=== PATIENT | male | born 1970 | race Caucasian/White ===

== ENCOUNTER 2023-12-23 21:23 | Emergency (ER) | payer SELFPAY ==
[2023-12-23 21:59] LABS: Absolute Basophils 0.1 K/uL (0-0.5); Absolute Eosinophils 0.4 K/uL (0-0.5); Absolute Monocytes 0.8 K/uL (0.1-1.3); Absolute Neutrophil 6.1 K/uL (1.8-8.0); Basophils % 1.1 % (0-1.3); Eosinophils % 4.4 % (0-4.4); Hematocrit 43.4 % (39.6-49.0); Hemoglobin 13.4 g/dL (13.6-17.9); Lymphocytes % 21.7 % (15.3-44.8); MCH 24.8 pg (27.0-35.0); MCV 79.9 fL (80-100); MPV 7.2 fL (7.6-11.3); Monocytes % 8.1 % (3.3-12.3); Neutrophils % 64.7 % (41.7-73.7); Platelets 365 thou/uL (152-406); RBC Red Blood Cell Count 5.43 M/uL (4.33-5.43)
[2023-12-23] MEDS ORDERED: ALBUTEROL 2.5 MG/3 ML NEB SOL ONE ×2 (21:59→22:01)
[2023-12-23] MEDS ORDERED: METHYLPREDNISOLONE 125 MG INJ ONE (21:59)
[2023-12-23] MEDS ORDERED: IPRATROPIUM BROM 0.5MG/2.5ML ONE (21:59)
[2023-12-23] MEDS ORDERED: FUROSEMIDE 40 MG/4 ML VIAL ONE (22:00)
[2023-12-23] MEDS ORDERED: GUAIFENESIN/DM 5 ML UCUP ONE (22:00)
[2023-12-23 22:17] LABS: SARS-CoV-2 Antigen CONTROL BLUE LINE VIS/BG OK; SARS-CoV-2 Antigen Rapid Res Negative (Negative)
[2023-12-23 22:18] LABS: Anion Gap 6.9 mEq/L (5.0-15.0); Potassium 3.9 mEq/L (3.5-5.1); Troponin High Sensitivity 22.5 pg/mL (<58.9)
[2023-12-23 22:51] LABS: PT Prothrombin Time 12.8 SECONDS (9.5-12.5); Protime INR 1.17
--- NOTE | 2023-12-23 23:05 | RAD REPORT ---
[facility] 10[facility]15 pm CLINICAL HISTORY: DYSPNEA COMPARISON: CHEST SINGLE VIEW dated 02/05/2014 TECHNIQUE: Portable AP view of the chest. FINDINGS: The lungs are clear although decreased penetration somewhat limits evaluation. No pneumot horax or effusion. The cardiomediastinal contours are unremarkable. IMPRESSION: No acute cardiopulmonary process.
[2023-12-23 23:06] LABS: ALT/SGPT 39 U/L (16-61); AST/SGOT 19 U/L (15-37); Albumin 3.1 g/dL (3.4-5.0); Albumin/Globulin Ratio 0.8 (1.1-1.8); Alkaline Phosphatase 79 U/L (45-117); Bilirubin Direct < 0.2 mg/dL (0-0.2); Bilirubin Total 0.2 mg/dL (0.2-1.0); Globulin 4.1 g/dL (2.3-3.5); Protein, Total 7.2 g/dL (6.4-8.2)
[2023-12-24] MEDS ORDERED: AZITHROMYCIN 250 MG TAB ONE (00:05)
--- NOTE | 2023-12-24 00:06 | ER ---
Nurse's Notes [facility] Name: Polo Rogers Jr Age: 53 yrs Sex: Male : 1970 Arrival Date: 12/23/2023 Time: 21:23 Bed 10 Private MD: Diagnosis: COPD/ Chronic obstructive pulmonary disease with (acute) exacerbation;Acute bronchitis, unspecified;Acute bacterial bronchitis Presentation: 12/22 21:28 Chief complaint: Patient states: shortness of breath x1 month with worsening yesterday as6 and today. Coronavirus screen: At this time, the client does not indicate any symptoms associated with coronavirus-19. Ebola Screen: No symptoms or risks identified at this time. Initial Sepsis Screen: Does the patient meet any 2 criteria? No. Patient's initial sepsis screen is negative. Does the patient have a suspected source of infection? No. Patient's initial sepsis screen is negative. Risk Assessment: Do you want to hurt yourself or someone else? Patient reports no desire to harm self or others. Onset of symptoms was December 22, 2023. 21:28 Acuity: IMMANUEL 2 as6 21:28 Method Of Arrival: Ambulatory as6 Historical: - Allergies: 21:26 TB test; as6 - PMHx: 21:26 Congestive heart failure; Chronic obstructive lung disease; Hypertensive disorder; as6 - PSHx: 21:26 hernia; as6 - Immunization history:: Adult Immunizations not up to date. - Infectious Disease History:: Denies. - Social history:: Smoking status: Patient/guardian denies using tobacco, but has a distant history of tobacco abuse. - Family history:: not pertinent. Screenin:50 [facility] ED Fall Risk Assessment (Adult) History of falling in the last 3 months, kl including since admission No falls in past 3 months (0 pts) Confusion or Disorientation No (0 pts) Intoxicated or Sedated No (0 pts) Impaired Gait No (0 pts) Mobility Assist Device Used No (0 pt) Altered Elimination No (0 pt) Score/Fall Risk Level 0 - 2 = Low Risk Oriented to surroundings, Maintained a safe environment. Abuse screen: Denies threats or abuse. Nutritional screening: No deficits noted. Tuberculosis screening: No symptoms or risk factors identified. Assessment: 21:49 General: Appears uncomfortable, Behavior is calm, cooperative. Pain: Denies pain. kl Cardiovascular: Rhythm is sinus rhythm. Respiratory: Airway is patent Trachea midline Respiratory effort is labored, Respiratory pattern is symmetrical, tachypnea the patient has moderate shortness of breath Parent/caregiver reports the patient having shortness of breath at rest on exertion cough that is non-productive, hacking. 23:36 Reassessment: Patient appears in no apparent distress at this time. Patient states kl feeling better. Patient states symptoms have improved. Vital Signs: 21:25 BP 157 / 90; Pulse 101; Resp 20 S; Temp 97.8(TE); Pulse Ox 99% on R/A; Weight 158.76 kg as6 (R); Height 5 ft. 9 in. (R); Pain 8/10; 23:36 BP 123 / 86; Pulse 89; Resp 20; Pulse Ox 96% on R/A; kl 12/23 00:27 BP 110 / 89; Pulse 92; Resp 20; Temp 97.6(T); Pulse Ox 96% on R/A; kl 12/22 21:25 Body Mass Index 51.69 (158.76 kg, 175.26 cm) as6 12/22 21:25 Pain Scale: Adult as6 [place] Coma Score: 04:35 Eye Response: spontaneous(4). Motor Response: obeys commands(6). Verbal Response: sp4 oriented(5). Total: 15. ED Course: 12/22 21:25 Patient arrived in ED. as6 21:26 Arm band placed on. as6 21:29 Triage completed. as6 21:40 Alan Trotter MD is Attending Physician. sp4 21:50 Client placed on continuous cardiac and pulse oximetry monitoring. NIBP monitoring kl applied. 21:50 Flu Sent. bc6 21:50 SARS-COV-2 Antigen Rapid Sent. bc6 21:50 Basic Metabolic Panel Sent. bc6 21:50 CBC with Diff Sent. bc6 21:50 NT PRO-BNP Sent. bc6 21:50 Troponin HS Sent. bc6 21:50 Initial lab(s) drawn, by me, sent to lab. COVID swab sent to lab. Flu and/or RSV swab bc6 sent to lab. Inserted saline lock: 20 gauge in right antecubital area, using aseptic technique. Blood collected. 22:16 XRAY Chest (1 view) In Process Unspecified. EDID 12/23 00:28 Patient has correct armband on for positive identification. 00:28 No provider procedures requiring assistance completed. IV discontinued, intact, kl bleeding controlled, No redness/swelling at site. Pressure dressing applied. Administered Medications: 12/22 22:09 Drug: DuoNeb Nebulize (3:1) (2.5 mg - 0.5 mg) 3 ml Nebulizer once Route: Nebulizer; 12/23 00:27 Follow up: Response: No adverse reaction; Marked relief of symptoms 12/22 22:09 Drug: MethylPrednisoLONE IVP 125 mg IVP once Route: IVP; Site: right antecubital; 12/23 00:27 Follow up: Response: No adverse reaction 12/22 22:09 Drug: Dextromethorphan-Guaifenesin PO Liquid 10 mg-100 mg/5 mL 10 ml PO once Route: PO; 12/23 00:27 Follow up: Response: No adverse reaction 12/22 22:09 Drug: Furosemide IVP 40 mg IVP once; give over 2 minutes Route: IVP; Site: right kl antecubital; 12/23 00:27 Follow up: Response: Marked relief of symptoms 00:16 Drug: AZITHromycin PO 500 mg PO once Route: PO; 00:26 Follow up: Response: No adverse reaction Medication: 00:29 VIS not applicable for this client. Outcome: 00:04 Discharge ordered by . sp4 00:28 Discharged to home ambulatory, with family, 00:28 Condition: improved 00:28 Discharge instructions given to patient, Instructed on discharge instructions, follow up and referral plans. medication usage, Demonstrated understanding of instructions, follow-up care, medications, Prescriptions given X 4, 00:29 Patient left the ED. Signatures: Dispatcher [employer] [facility] Vida Neville RN RN kl Slawson, Ashby, RN RN as6 Carowatson, Breana bc6 Potepalov, Sergey, MD MD sp4
--- NOTE | 2023-12-24 00:06 | EDPHYS ---
Physician Documentation [facility] Name: Polo Rogers Jr Age: 53 yrs Sex: Male : 1970 Arrival Date: 12/23/2023 Time: 21:23 Bed 10 Private MD: ED Physician Alan Trotter HPI: 12/22 21:40 This 53 yrs old Male presents to ER via Ambulatory with complaints of Gen sp4 complaint . 12/23 04:35 53 -year-old male presents with acute onset shortness of breath associated with sp4 productive cough.. Historical: - Allergies: 12/22 21:26 TB test; as6 - PMHx: 21:26 Congestive heart failure; Chronic obstructive lung disease; Hypertensive disorder; as6 - PSHx: 21:26 hernia; as6 - Immunization history:: Adult Immunizations not up to date. - Infectious Disease History:: Denies. - Social history:: Smoking status: Patient/guardian denies using tobacco, but has a distant history of tobacco abuse. - Family history:: not pertinent. ROS: 12/23 04:35 Constitutional: Negative for fever, chills, and weight loss, positive shortness of sp4 breath and productive cough All other systems are negative, Exam: 04:35 Constitutional: This is a well developed, well nourished patient who is awake, alert, sp4 and in no acute distress. Head/Face: Normocephalic, atraumatic. Eyes: Pupils equal round and reactive to light, extra-ocular motions intact. Lids and lashes normal. Conjunctiva and sclera are not injected. Cornea within normal limits. Periorbital areas with no swelling, redness, or edema. ENT: Nares patent. No nasal discharge, no septal abnormalities noted. Tympanic membranes are normal and external auditory canals are clear. Oropharynx with no redness, swelling, or masses, exudates, or evidence of obstruction, uvula midline. Mucous membranes moist. Neck: Trachea midline, no thyromegaly or masses palpated, and no cervical lymphadenopathy. Supple, full range of motion without nuchal rigidity, or vertebral point tenderness. Chest/axilla: Normal chest wall appearance and motion. Nontender with no deformity. No lesions are appreciated. Cardiovascular: Regular rate and rhythm with a normal S1 and S2. No gallops, murmurs, or rubs. Normal PMI, no JVD. No pulse deficits. Respiratory: Lungs have equal breath sounds bilaterally, clear to auscultation and percussion. No rales, rhonchi or wheezes noted. No increased work of breathing, no retractions or nasal flaring. Abdomen/GI: Soft, with normal bowel sounds. No distension or tympany. No guarding or rebound. No evidence of tenderness throughout. Back: No spinal tenderness. No costovertebral tenderness. Skin: Warm, dry with normal turgor. Normal color with no rashes, no lesions, and no evidence of cellulitis. MS/ Extremity: Pulses equal, no cyanosis. Neurovascular intact. Full, normal range of motion. Neuro: Awake and alert, GCS 15, oriented to person, place, time, and situation. Cranial nerves II-XII grossly intact. Motor strength 5/5 in all extremities. Sensory grossly intact. Psych: Awake, alert, with orientation to person, place and time. Behavior, mood, and affect are within normal limits 04:38 ECG was reviewed by the Attending Physician. EKG time 2137, normal sinus rhythm with sp4 PVCs. The rate of 90. Vital Signs: 12/22 21:25 BP 157 / 90; Pulse 101; Resp 20 S; Temp 97.8(TE); Pulse Ox 99% on R/A; Weight 158.76 kg as6 (R); Height 5 ft. 9 in. (R); Pain 8/10; 23:36 BP 123 / 86; Pulse 89; Resp 20; Pulse Ox 96% on R/A; kl 12/23 00:27 BP 110 / 89; Pulse 92; Resp 20; Temp 97.6(T); Pulse Ox 96% on R/A; kl 12/22 21:25 Body Mass Index 51.69 (158.76 kg, 175.26 cm) as6 12/22 21:25 Pain Scale: Adult as6 [place] Coma Score: 04:35 Eye Response: spontaneous(4). Motor Response: obeys commands(6). Verbal Response: sp4 oriented(5). Total: 15. MDM: 12/22 21:43 Patient medically screened. sp4 12/23 04:37 Differential Diagnosis altered mental status, sepsis, flu. Data reviewed: vital signs, sp4 nurses notes, lab test result(s), EKG, radiologic studies, plain films. 04:37 ED course: EXAM DESCRIPTION: [place] Single View12/23/2023 10:15 pm CLINICAL HISTORY: sp4 DYSPNEA COMPARISON: CHEST SINGLE VIEW dated 02/05/2014 TECHNIQUE: Portable AP view of the chest. FINDINGS: The lungs are clear although decreased penetration somewhat limits evaluation. No pneumothorax or effusion. The cardiomediastinal contours are unremarkable. IMPRESSION: No acute cardiopulmonary process. . 04:39 Consideration of Admission/Observation Escalation of care including sp4 admission/observation considered. ED course: Patient feels improved. He is stable for discharge home.. 12/22 21:46 Order name: Basic Metabolic Panel; Complete Time: 23:58 12/22 21:46 Order name: CBC with Diff; Complete Time: 23:58 12/22 21:46 Order name: NT PRO-BNP; Complete Time: 23:58 12/22 21:46 Order name: Troponin HS; Complete Time: 23:58 12/22 21:46 Order name: SARS-COV-2 Antigen Rapid; Complete Time: 23:58 12/22 21:46 Order name: Flu; Complete Time: 23:58 12/22 21:53 Order name: CRP; Complete Time: 23:58 [facility] 12/22 21:53 Order name: PT-INR; Complete Time: 23:58 [facility] 12/22 21:53 Order name: Blood Culture Adult (2) [facility] 12/22 21:53 Order name: Lactate w/ 2H reflex if indic.; Complete Time: 23:58 [facility] 12/22 21:54 Order name: LFT's; Complete Time: 23:58 [facility] 12/22 21:46 Order name: XRAY Chest (1 view); Complete Time: 23:58 12/22 21:46 Order name: Cardiac monitoring; Complete Time: 21:50 12/22 21:46 Order name: EKG - Nurse/Tech; Complete Time: 21:50 12/22 21:46 Order name: IV Saline Lock; Complete Time: 21:50 12/22 21:46 Order name: Labs collected and sent; Complete Time: 21:50 12/22 21:46 Order name: O2 Per Protocol; Complete Time: 21:50 bc6 12/22 21:46 Order name: O2 Sat Monitoring; Complete Time: 21:50 bc6 EC:38 Rate is 90 beats/min. Rhythm is regular, Normal Sinus Rhythm with Occasional PVCs. QRS sp4 [place] is Normal. [place] interval is normal. QRS interval is normal. QT interval is normal. No Q waves. T waves are Normal. No ST changes noted. Clinical impression: No evidence of ischemia. Interpreted by me. Reviewed by me. Administered Medications: 12/22 22:09 Drug: DuoNeb Nebulize (3:1) (2.5 mg - 0.5 mg) 3 ml Nebulizer once Route: Nebulizer; 12/23 00:27 Follow up: Response: No adverse reaction; Marked relief of symptoms 12/22 22:09 Drug: MethylPrednisoLONE IVP 125 mg IVP once Route: IVP; Site: right antecubital; 12/23 00:27 Follow up: Response: No adverse reaction 12/22 22:09 Drug: Dextromethorphan-Guaifenesin PO Liquid 10 mg-100 mg/5 mL 10 ml PO once Route: PO; 12/23 00:27 Follow up: Response: No adverse reaction 12/22 22:09 Drug: Furosemide IVP 40 mg IVP once; give over 2 minutes Route: IVP; Site: right antecubital; 12/23 00:27 Follow up: Response: Marked relief of symptoms 00:16 Drug: AZITHromycin PO 500 mg PO once Route: PO; 00:26 Follow up: Response: No adverse reaction Disposition Summary: 12/24/23 00:04 Discharge Ordered Notes: Location: Home sp4 Problem: new sp4 Symptoms: have improved sp4 Condition: Stable sp4 Diagnosis - COPD/ Chronic obstructive pulmonary disease with (acute) exacerbation sp4 - Acute bronchitis, unspecified sp4 - Acute bacterial bronchitis sp4 Followup: sp4 - With: Private Physician - When: 7 - 10 days - Reason: Recheck today's complaints Discharge Instructions: - Discharge Summary Sheet sp4 - Acute Bronchitis, Adult sp4 Forms: - Patient Portal Instructions sp4 Prescriptions: - dextromethorphan-guaifenesin 20-400 mg Oral tablet - take 2 tablet ORAL route every 6 hours PRN cough; 40 tablet; Refills: 0, sp4 Product Selection Permitted - Tessalon Perles 100 mg Oral capsule - take 1 capsule ORAL route every 4 hours As needed PRN cough; 60 capsule; sp4 Refills: 0, Product Selection Permitted - Zithromax Z-Herminio 250 mg Oral Tablet - take 1 tablet ORAL route as directed for 5 days Day 1 - take two (2) tablets sp4 one time. Day 2, 3, 4 , 5 take one (1) tablet once daily.; 6 tablet; Refills: 0, Product Selection Permitted - Prednisone 20 mg Oral Tablet - take 2 tablets ORAL route once daily for 5 days; 10 tablet; Refills: 0, Product sp4 Selection Permitted Signatures: Dispatcher [employer] Vida Winn RN RN kl Slawson, Ashby, RN RN as6 Ayse Coreas Sergey, MD MD sp4 Corrections: (The following items were deleted from the chart) 12/22 21:54 21:54 HEPATIC FUNCTION+[email or web address] ordered. JOEAL ANA
[2023-12-24 01:16] VITALS: BP 110/89; TEMP 97.6; O2SAT 96
--- NOTE | 2023-12-24 13:53 | EKG ---
Test Date: 2023-12-23 Test Time: 21:38:02 Employment Training Specialist: ELIZABETH MEASUREMENT RESULTS: Intervals: Rate: 90 MS: 158 QRSD: 92 QT: 370 QTc: 452 [place]: P: 65 MS: 158 QRS: 40 T: 117 INTERPRETIVE STATEMENTS: Sinus rhythm with occasional premature ventricular complexes Low voltage QRS T wave abnormality, consider lateral ischemia Abnormal ECG No previous ECG available for comparison Electronically Signed On 12-24-23 13:53:12 CDT by Luis Watts
== END 2023-12-24 00:29 | disposition home or self-care (01) ==
LOC: ER 21:23
DX: J44.1 Chronic obstructive pulmonary disease with (acute) exacerbation (principal); Z11.52 Encounter for screening for COVID-19
CPT/HCPCS: 36415; 71045; 80048; 80076; 83605; 83880; 84484; 85025; 85610; 86140; 87040; 87804; 87811; 93005; 94640; 96374; 96375; 99285; J1940; J2919; J7613; J7644

== ENCOUNTER 2024-10-30 14:06 | Emergency (ER) | payer OTHER ==
--- OUTSIDE RECORDS SUMMARY | 2024-10-30 14:11 | XMS REPORT | Continuity of Care Document ---
Author Name Unknown Address [address] [facility] [address] [place] [address] [facility] Address [address] [facility] [address] [place] [address] Care Team Providers Care Quality Control Inspector Heading Name Role Phone SOCORRO EASLEY Primary Care Physician Unavailab JUANPABLO Spears Attending Clinician UnavailCOSMO Sanchez Attending Clinician Unavailable ARNOL GARIBAY Attending Clinician Unavailab jon Wilson Attending Clinician Unavailable Jennifer Jaquez PA-C Attending Clinician [phone] Cosmo Calvillo MD Attending Clinician [phone] Vidhya Morrison MD Attending Clinician Dyan Butler Attending Clinician [phone] JENNIFER JAQUEZ Attending Clinician Unavailable Doctor Unassigned, [place] Attending Clinician U Kwame Pozo Attending Clinician [phone] Chauncey Munoz DO Attending Clinician [phone] CHAUNCEY MUNOZ Attending Clinician Unavailable CHAUNCEY MUNOZ Attending Clinician Unavailable Nurse, Flaco Gonzalez Attending Clinician Unavaila MARGARITA Hester Attending Clinician Jaylin vailable Margarita Ta Attending Clinician VALDEZ MEHTA Attending Clinician UnavailValdez Casarez MD Attending Clinician [phone] VIDHYA MORRISON Attending Clinician Jaylin vailable Rajeev Rojas S Attending Clinician [phone] JOVAN NEGRETE Attending Clinician Unavail able Nurse, Adc Pob Immunization Attending Clinician Unavailable Jovan Negrete DO Attending Clinician [phone] Care, Flaco Primary Attending Clinician UnavailKWAME Bean Attending Clinician Unavailable Heber JAVA PROGRAMMER, Elisabeth Attending Clinician [phone] Steven ADMINISTRATIVE ASSISTANT COORDINATOR, Eloisa F Attending Clinician [phone] Wilber HAYWARD, Rebecca Attending Clinician [phone] Noah HAYWARD, Bowen Attending Clinician [phone] JEMMA ADDISON Attending Clinician Unavaila aliyah JOVEL, Jemma Bell Attending Clinician [phone] Juarez HAYWARD, Juanpablo Kang Attending Clinician [phone] Only, Lcc Test Attending Clinician Unavailable Vls-Lab Attending Clinician Unavailable Only, Adc Test Attending Clinician Unavailable Julius HAYWARD, Dutch Negron Attending Clinician [phone] Waqas HAYWARD, Heather Bentley Attending Clinician + [phone] RAJEEV PEARL Attending Clinician Unavailable Emeli Raymond Attending Clinician [phone] Dangelo HAYWARD, Jhonatan Negron Attending Clinician [phone] MAKAYLA JAQUEZ Attending Clinician Unavailable JUANPABLO FLOREZ Admitting Clinician Unavailcookie Wilson Admitting Clinician Unavailable MARGARITA POST Admitting Clinician Jaylin Bowen Johnston MD Admitting Clinician [phone] Juanpablo Florez MD Admitting Clinician [phone] EMELI RINALDI Admitting Clinician Unavailable Payers Payer Name Policy Type Policy Number Effective Date Expirati on Date Source [employer] [employer] [id number] 2020 0 00:00:00 [facility] [id number] 2024 00:00:00 [facility] [id number] [facility] [id number] 2021 00:00:00 Problems Condition Name Condition Details Condition Category Status Onset Date Resolution Date Last Treatment Date Treating Clinician Comments Source Chronic heart failure with preserved ejection fraction Chronic heart failure with preserved ejection fraction Disease Active 8- 00:00: 00 [facility] COPD (chronic obstructiv e pulmonary disease) COPD (chronic obstructiv e pulmonary disease) Disease Active 7-19 00:00: 00 [facility] Flatulence , eructation , and gas pain Flatulence , eructation , and gas pain Disease Active 11-03 00:00: 00 Overview: Formattin g of this note might be different from the original. Added automatic ally from request for surgery [id number] [facility] Morbid obesity with body mass index of 50 or higher Morbid obesity with body mass index of 50 or higher Disease Active 10-19 00:00: 00 [facility] Umbilical hernia without obstructio n or gangrene Umbilical hernia without obstructio n or gangrene Disease Active 10-06 00:00: 00 Overview: Formattin g of this note might be different from the original. Added automatic ally from request for surgery [id number] [facility] Heart failure Heart failure Disease Active 2016-07 00:00: 00 [facility] Essential hypertensi on Essential hypertensi on Disease Active 2016-07 00:00: 00 [facility] Obesity Obesity Disease Active 2016-07 00:00: 00 [facility] Diabetes mellitus Diabetes mellitus Disease Active [facility] Allergies, Adverse Reactions, Alerts Allergy Name Allergy Type Status Severity Reaction(s) Onset Date Inactive Date Treating Clinician Comments Source Tubercul in Propensi ty to adverse reaction s Active Other - See comments 10-19 00:00: 00 Positive- false positive [facility] TUBERCUL IN DRUG Active Other-Cmnt 10-19 00:00: 00 [facility] Social History Social Habit Start Date Stop Date Quantity Comments Source History SDOH Alcohol Frequency [facility] History SDOH Alcohol Std Drinks [facility] History SDOH Alcohol Binge [facility] Exposure to SARS-CoV-2 (event) 2021-11-17 00:00:00 2021-11-27 12:58:00 Not sure [facility] Alcohol intake 2021-10-01 00:00:00 2021-10-01 00:00:00 Current drinker of alcohol (finding) [facility] Tobacco use and exposure 2017-07-05 00:00:00 2017-07-05 00:00:00 Smokeless tobacco non-user [facility] Alcohol Comment 2017-07-05 00:00:00 2017-07-05 00:00:00 3-4 beers/week [facility] History of tobacco use 1998-07-05 00:00:00 Cigarette Smoker [facility] Sex Ass[birth year] At 1970 00:00:00 1970 00:00:00 [facility] Smoking Status Start Date Stop Date Source Ex-smoker 2017-07-05 00:00:00 [facility] Or[facility] Medication Name Filled Medication Name Start Date Stop Date Current Medication? Ordering Clinician Indication Dosage Frequency Signature (SIG) Comments Components Source metoprolol succinate XL 50 mg 24 hr tablet 2021-07 00:00: 00 Yes [id number] 50mg Take 1 tablet by mouth in the morning. [facility] METFORMIN 500 mg tablet 03-30 00:00: 00 Yes [id number] TAKE 1 TABLET BY MOUTH TWICE DAILY WITH MEALS [facility] FUROSEMIDE 40 mg tablet 03-30 00:00: 00 Yes [id number] TAKE 1 TABLET BY MOUTH IN THE MORNING AND 1TABLET IN THE EVENING [facility] METFORMIN 500 mg tablet 03-02 00:00: 00 Yes [id number] TAKE 1 TABLET BY MOUTH TWICE DAILY WITH MEALS [facility] FUROSEMIDE 40 mg tablet 03-02 00:00: 00 03-30 00:00 :00 No [id number] TAKE 1 TABLET BY MOUTH IN THE MORNING AND 1 IN THE EVENING [facility] METFORMIN 500 mg tablet 6-16 00:00: 00 03-02 00:00 :00 No [id number] TAKE 1 TABLET BY MOUTH TWICE DAILY WITH MEALS [facility] lisinopriL 40 mg tablet 12-11 00:00: 00 Yes [id number] 40mg Take 1 tablet by mouth daily. [facility] metoprolol succinate XL 50 mg 24 hr tablet 12-11 00:00: 00 06-02 00:00 :00 No [id number] 50mg Take 1 tablet by mouth daily. [facility] FENOFIBRATE 145 mg tablet 12-10 00:00: 00 Yes [id number] Take 1 tablet by mouth once daily [facility] ALLOPURINOL 300 mg tablet 12-10 00:00: 00 Yes [id number] Take 1 tablet by mouth once daily [facility] CITALOPRAM 20 mg tablet 12-10 00:00: 00 Yes [id number] Take 1 tablet by mouth once daily [facility] FUROSEMIDE 40 mg tablet 12-10 00:00: 00 03-02 00:00 :00 No [id number] TAKE 1 TABLET BY MOUTH IN THE MORNING AND TAKE 1 TABLET IN THE EVENING [facility] METFORMIN 500 mg tablet 11-03 00:00: 00 Yes [id number] TAKE 1 TABLET BY MOUTH TWICE DAILY WITH MEALS [facility] DICLOFENAC 75 mg EC tablet 11-03 00:00: 00 Yes [id number] TAKE 1 TABLET BY MOUTH TWICE DAILY WITH MEALS [facility] CITALOPRAM 20 mg tablet 11-03 00:00: 00 12-10 00:00 :00 No [id number] Take 1 tablet by mouth once daily [facility] FENOFIBRATE 145 mg tablet 11-02 00:00: 00 12-10 00:00 :00 No [id number] Take 1 tablet by mouth once daily [facility] ALLOPURINOL 300 mg tablet 11-02 00:00: 00 12-10 00:00 :00 No [id number] Take 1 tablet by mouth once daily [facility] FUROSEMIDE 40 mg tablet 2022-0 4-11 00:00: 00 12-10 00:00 :00 No [id number] TAKE 1 TABLET BY MOUTH IN THE MORNING AND TAKE 1 TABLET IN THE EVENING [facility] ALBUTEROL 2.5 mg /3 mL (0.083 %) nebulizer solution 3-14 00:00: 00 Yes USE 3 ML IN NEBULIZER EVERY 4 HOURS NEEDED FOR WHEEZING AND FOR SHORTNESS OF BREATH [facility] ALLOPURINOL 300 mg tablet 3-07 00:00: 00 11-02 00:00 :00 No [id number] Take 1 tablet by mouth once daily [facility] FUROSEMIDE 40 mg tablet 09-28 00:00: 00 11-02 00:00 :00 No [id number] TAKE 1 TABLET BY MOUTH IN THE MORNING AND TAKE 1 TABLET IN THE EVENING [facility] FENOFIBRATE 145 mg tablet 09-28 00:00: 00 11-02 00:00 :00 No [id number] Take 1 tablet by mouth once daily [facility] METFORMIN 500 mg tablet - 00:00: 00 01-07 00:00 :00 No [id number] TAKE 1 TABLET BY MOUTH TWICE DAILY WITH MEALS [facility] diclofenac 75 mg EC tablet 07-29 00:00: 00 11-03 00:00 :00 No [id number] 75mg Take 1 tablet by mouth 2 (two) times daily with meals. [facility] metFORMIN 500 mg tablet - 00:00: 00 11-03 00:00 :00 No [id number] 500mg Take 1 tablet by mouth 2 (two) times daily with meals. [facility] metoprolol succinate XL 50 mg 24 hr tablet 2020-07 00:00: 00 12-11 00:00 :00 No [id number] 50mg Take 1 tablet by mouth daily. [facility] lisinopriL 40 mg tablet 2020-07 00:00: 00 12-11 00:00 :00 No [id number] 40mg Take 1 tablet by mouth daily. [facility] CITALOPRAM 20 mg tablet 2020-07 0-04 00:00: 00 11-03 00:00 :00 No [id number] Take 1 tablet by mouth once daily [facility] albuterol-i pratropium (COMBIVENT RESPIMAT) 20-100 mcg/actuati on inhaler 930 10:15: 40 Yes 1{puff} Inhale 1 Puff 4 (four) times daily. [facility] predniSONE 10 mg tablet 02-11 00:00: 00 Yes [id number] 3 tabs PO daily x 3 days, 2 tabs po daily x3 days, then 1 tab po daily for 3 days then stop [facility] omeprazole 40 mg capsule 12-04 00:00: 00 Yes [id number] 40mg Take 1 capsule by mouth 2 (two) times daily. [facility] albuterol 2.5 mg /3 mL (0.083 %) nebulizer solution 2019-07 00:00: 00 Yes 2.5mg Inhale 3 mL every 4 (four) hours as needed for Wheezing or Shortness of Breath. [facility] Pitavastati n (LIVALO) 4 mg Tab 2019-07 00:00: 00 Yes [id number] 4mg Take 4 mg by mouth daily. [facility] budesonide- formoteroL (SYMBICORT) 160-4.5 mcg/actuati on inhaler 03-11 00:00: 00 Yes [id number] 2{puff} Inhale 2 Puffs 2 (two) times daily. [facility] aspirin 81 mg chewable tablet 2016-07 00:00: 00 Yes [id number] 81mg Take 1 tablet by mouth daily. [facility] Vital Signs Vital Name Observation Time Observation Value Comments S yomi Systolic blood pressure 2021-10-01 16:26:00 137 mm[Hg] [facility] Diastolic blood pressure 2021-10-01 16:26:00 81 mm[Hg] [facility] Heart rate 2021-10-01 16:26:00 74 /min [facility] Respiratory rate 2021-10-01 16:26:00 22 /min [facility] Body height 2021-10-01 16:26:00 175.3 cm [facility] Body weight 2021-10-01 16:26:00 154.132 kg [facility] BMI 2021-10-01 16:26:00 50.18 kg/m2 [facility] Oxygen saturation in Arterial blood by Pulse oximetry 2021-10-01 16:26:00 95 /min Gary o [facility] Procedures Procedure Date / Time Performed Performing Clinician Source PHYSICIAN CERTIFICATION STATEMENT 2021-11-20 05:01:00 Doctor Unassigned, [place] [facility] Encounters Start Date/Time End Date/Time Encounter Type Admission Type Attending [facility] Care Facility Care Department Encounter ID Source 2021-05-25 08:56:20 Emergency [facility] [id number] [facility] 2021-05-24 17:11:28 Outpatient JUANPABLO ALDANA [facility] [id number] [facility] 2021-05-23 06:15:49 Emergency [facility] [id number] [facility] 2024-11-01 14:40:00 2024-11-01 14:40:00 Outpatient COSMO JACKSON [facility] [id number] [facility] 2023-11-21 09:28:00 2023-11-21 09:28:00 Outpatient ARNOL ROSAS [facility] [id number] [facility] 2023-11-03 00:00:00 2023-11-03 00:00:00 Outpatient June GONZALEZ VFP VFP [id number] [facility] 2022-06-04 00:00:00 2022-06-04 00:00:00 Jennifer Young [facility] [place] 1.2.840.114 350.1.13.10 4.2.7.2.686 [id number] [facility] 2022-06-04 00:00:00 2022-06-04 00:00:00 Refill Cosmo Calvillo [facility] 1.2.840.114 350.1.13.10 4.2.7.2.686 [id number] [facility] 2022-06-02 00:00:00 2022-06-02 00:00:00 [facility] 1.2.840.114 350.1.13.10 4.2.7.2.686 [id number] [facility] 2022-03-29 00:00:00 2022-03-29 00:00:[address] [facility] 1.2.840.114 350.1.13.10 4.2.7.2.686 [id number] [facility] 2022-03-29 00:00:00 2022-03-29 00:00:00 [address] Ronak Jennifer Fernandez [facility] 1.2.840.114 350.1.13.10 4.2.7.2.686 [id number] [facility] 2022-02-27 00:00:00 2022-02-27 00:00:[address] [facility] 1.2.840.114 350.1.13.10 4.2.7.2.686 [id number] [facility] 2022-02-27 00:00:00 2022-02-27 00:00:[address] [facility] 1.2.840.114 350.1.13.10 4.2.7.2.686 [id number] [facility] 2022-01-11 10:30:00 2022-01-11 10:30:00 Outpatient R JENNIFER JAQUEZ [facility] [id number] [facility] 2022-01-07 00:00:00 2022-01-07 00:00:[address] [facility] 1.2.840.114 350.1.13.10 4.2.7.2.686 [id number] [facility] 2022-01-07 00:00:00 2022-01-07 00:00:[address] [facility] 1.2.840.114 350.1.13.10 4.2.7.2.686 [id number] [facility] 2021-12-07 00:00:00 2021-12-07 00:00:00 [facility] 1.2.840.114 350.1.13.10 4.2.7.2.686 [id number] [facility] 2021-12-06 00:00:00 2021-12-06 00:00:[address] [facility] 1.2.840.114 350.1.13.10 4.2.7.2.686 [id number] [facility] 2021-11-27 13:40:00 2021-11-27 13:40:00 Outpatient COSMO JACKSON [facility] [id number] [facility] 2021-11-27 13:40:00 2021-11-27 13:40:00 [facility] [id number] 2021-11-27 13:40:00 2021-11-27 13:40:00 [facility] [id number] [facility] 2021-11-20 00:00:00 2021-11-20 00:00:00 Orders Only Doctor Unassigned, [place] [facility] 1.2.840.114 350.1.13.10 4.2.7.2.686 [id number] [facility] 2021-11-01 00:00:00 2021-11-01 00:00:[address] [facility] 1.2.840.114 350.1.13.10 4.2.7.2.686 [id number] [facility] 2021-11-01 00:00:00 2021-11-01 00:00:[address] [facility] 1.2.840.114 350.1.13.10 4.2.7.2.686 [id number] [facility] 2021-11-01 00:00:00 2021-11-01 00:00:00 Refill Vidhya Morrison [facility] 1.2.840.114 350.1.13.10 4.2.7.2.686 [id number] [facility] 2021-10-05 00:00:00 2021-10-05 00:00:00 Refill Chauncey Munoz [facility] 1.2.840.114 350.1.13.10 4.2.7.2.686 [id number] [facility] 2021-10-05 00:00:00 2021-10-05 00:00:00 Telephone Chauncey Munoz [facility] 1.2.840.114 350.1.13.10 4.2.7.2.686 [id number] [facility] 2021-10-01 10:30:00 2021-10-01 10:50:38 Office Visit Chauncey Munoz [facility] 1.2.840.114 350.1.13.10 4.2.7.2.686 [id number] [facility] 2021-10-01 10:30:00 2021-10-01 10:50:38 Outpatient CHAUNCEY NORRIS SHIGAJose [facility] [id number] [facility] 2021-10-01 10:30:00 2021-10-01 10:30:00 [facility] [id number] [facility] 2021-10-01 10:30:00 2021-10-01 10:30:00 Outpatient CHAUNCEY NORRIS SHIGAJose [facility] [id number] [facility] 2021-09-28 00:00:00 2021-09-28 00:00:00 Vidhya Ron [facility] 1.840.114 350.1.13.10 4.2.7.2.686 [id number] [facility] 2021-09-28 00:00:00 2021-09-28 00:00:00 Jennifer Young [facility] [place] 1.840.114 350.1.13.10 4.2.7.2.686 [id number] [facility] 2021-09-16 00:00:00 2021-09-16 00:00:00 Jennifer Carreon [facility] 1.0.114 350.1.13.10 4.2.7.2.686 [id number] [facility] 2021-09-07 09:00:00 2021-09-07 09:20:00 Nurse Visit NurseFlaco Amber Ali ALVIN [facility] 1.840.114 350.1.13.10 4.2.7.2.686 [id number] [facility] 2021-09-07 09:00:00 2021-09-07 09:00:00 Outpatient R [facility] [id number] [facility] 2021-09-07 09:00:00 2021-09-07 09:00:00 Outpatient R JENNIFER JAQUEZ [facility] [id number] [facility] 2021-09-03 12:16:56 2021-09-03 23:59:00 Outpatient R MARGARIAT JAUREGUI [facility] [id number] [facility] 2021-09-03 12:16:56 2021-09-03 23:59:00 [facility] 1.0.114 350.1.13.10 4.2.7.2.686 [id number] [facility] 2021-09-03 12:16:56 2021-09-03 23:59:00 [facility] [id number] [facility] 2021-08-29 00:00:00 2021-08-29 00:00:00 Jennifer Young [facility] [place] 1.0.114 350.1.13.10 4.2.7.2.686 [id number] [facility] 2021-08-29 00:00:00 2021-08-29 00:00:00 Kwame Wetzel [facility] [place] 1.840.114 350.1.13.10 4.2.7.2.686 [id number] [facility] 2021-08-25 00:00:00 2021-08-25 00:00:00 Jennifer Carreon [facility] 1.840.114 350.1.13.10 4.2.7.2.686 [id number] [facility] 2021-08-06 09:37:16 2021-08-06 23:59:00 Hospital Encounter Mariangel moore [facility] 1.2.840.114 350.1.13.10 4.2.7.2.686 [id number] [facility] 2021-08-06 09:37:16 2021-08-06 23:59:00 Outpatient R MARIANGEL MOORE [facility] [id number] [facility] 2021-08-06 10:20:00 2021-08-06 12:34:50 Outpatient R MARIANGEL MOORE [facility] [id number] [facility] 2021-08-06 10:20:00 2021-08-06 12:34:50 Office Visit Mariangel moore [facility] 1.2.840.114 350.1.13.10 4.2.7.2.686 [id number] [facility] 2021-08-06 10:20:00 2021-08-06 12:34:50 Outpatient R MARIANGEL MOORE [facility] [id number] [facility] 2021-08-03 13:58:31 2021-08-03 23:59:00 Outpatient R VALDEZ MEHTA [facility] [id number] [facility] 2021-08-03 13:58:31 2021-08-03 23:59:00 Hospital Encounter Valdez Mehta [facility] 1..840.114 350.1.13.10 4.2.7.2.686 [id number] [facility] 2021-08-03 14:10:00 2021-08-03 14:35:18 Outpatient R VALDEZ MEHTA [facility] [id number] [facility] 2021-08-03 14:10:00 2021-08-03 14:35:18 Office Visit Valdez Mehta [facility] 1.114 350.1.13.10 4.2.7.2.686 [id number] [facility] 2021-08-03 14:10:00 2021-08-03 14:10:00 Outpatient R VALDEZ MEHTA [facility] [id number] [facility] 2021-07-29 16:15:00 2021-07-29 16:50:23 Office Visit Vidhya Morrison [facility] 1.114 350.1.13.10 4.2.7.2.686 [id number] [facility] 2021-07-29 16:15:00 2021-07-29 16:50:23 Outpatient R VIDHYA MORRISON [facility] [id number] [facility] 2021-07-29 16:15:00 2021-07-29 16:15:00 Outpatient R VIDHYA MORRISON [facility] [id number] [facility] 2021-07-27 00:00:00 2021-07-27 00:00:[address] [facility] 1.114 350.1.13.10 4.2.7.2.686 [id number] [facility] 2021-07-04 00:00:00 2021-07-04 00:00:[address] [facility] 1.114 350.1.13.10 4.2.7.2.686 [id number] [facility] 2021-07-04 00:00:00 2021-07-04 00:00:00 Jennifer Young [facility] 1.2.840.114 350.1.13.10 4.2.7.2.686 [id number] [facility] 2021-06-28 00:00:00 2021-06-28 00:00:00 Refill Jennifer Jaquez [facility] 1.114 350.1.13.10 4.2.7.2.686 [id number] [facility] 2021-06-22 10:40:00 2021-06-22 10:40:00 Outpatient R VALDEZ MEHTA [facility] [id number] [facility] 2021-06-22 10:40:00 2021-06-22 10:40:00 Outpatient R VALDEZ MEHTA [facility] [id number] [facility] 2021-06-01 15:00:00 2021-06-01 15:14:33 Outpatient R JENNIFER JAQUEZ [facility] [id number] [facility] 2021-06-01 15:00:00 2021-06-01 15:14:33 Outpatient R JENNIFER JAQUEZ [facility] [id number] [facility] 2021-06-01 14:30:24 2021-06-01 15:14:33 Office Visit Jennifer Jaquez [facility] 1.114 350.1.13.10 4.2.7.2.686 [id number] [facility] 2021-06-01 15:00:00 2021-06-01 15:00:00 Outpatient R JENNIFER JAQUEZ [facility] [id number] [facility] 2021-05-27 00:00:00 2021-05-27 00:00:00 Cosmo Hameed [facility] 1..114 350.1.13.10 4.2.7.2.686 [id number] [facility] 2021-05-27 00:00:00 2021-05-27 00:00:00 [facility] HE[facility] CULLEN 1.2.840.114 350.1.13.10 4.2.7.2.686 [id number] [facility] 2021-05-27 00:00:00 2021-05-27 00:00:00 Ericjanina Hung Kwame [facility] [place] 1.2.840.114 350.1.13.10 4.2.7.2.686 [id number] [facility] 2021-05-26 15:00:00 2021-05-26 14:53:45 [id number] [facility] 2021-05-26 14:41:08 2021-05-26 14:53:45 [facility] 1.2.840.114 350.1.13.10 4.2.7.2.686 [id number] 059 [id number] [facility] 2021-04-26 00:00:00 2021-04-26 00:00:00 Carito Cesilia [facility] Surgical [facility] helena [place] 1.2.840.114 350.1.13.10 4.2.7.2.686 [id number] [facility] 2021-04-25 00:00:00 2021-04-25 00:00:[address] [facility] [place] 1.2.840.114 350.1.13.10 4.2.7.2.686 [id number] [facility] 2021-04-25 00:00:00 2021-04-25 00:00:00 Carito Cesilia [facility] Surgical Special helena [place] 1.2.840.114 350.1.13.10 4.2.7.2.686 [id number] [facility] 2021-04-23 10:06:48 2021-04-23 10:48:35 Office Visit John Chauncey [facility] 1.2.840.114 350.1.13.10 4.2.7.2.686 [id number] [facility] 2021-04-23 10:30:00 2021-04-23 10:30:00 Outpatient [facility] [id number] [facility] 2021-04-04 00:00:00 2021-04-04 00:00:[address] [facility] 1..840.114 350.1.13.10 4.2.7.2.686 [id number] [facility] 2021-03-25 15:40:00 2021-03-25 15:40:00 Outpatient JOVAN ZAIDI [facility] [id number] [facility] 2021-03-25 13:59:25 2021-03-25 13:59:45 Imm/Inj Visit Nurse, Elena Pob Immunizatio Jovan Alvarez [facility] 1.2.840.114 350.1.13.10 4.2.7.2.686 [id number] [facility] 2021-03-18 00:00:00 2021-03-18 00:00:00 Telephone Kwame Persaud [facility] [place] 1.2.840.114 350.1.13.10 4.2.7.2.686 [id number] [facility] 2021-03-04 16:40:00 2021-03-04 16:40:00 Outpatient JOVAN ZAIDI [facility] [id number] [facility] 2021-03-04 15:42:48 2021-03-04 16:10:45 [facility]vis [facility] 1.2840.114 350.1.13.10 4.2.7.2.686 [id number] 059 [id number] [facility] 2021-03-04 16:00:00 2021-03-04 16:00:00 [facility] [id number] [facility] 2021-02-26 00:00:00 2021-02-26 00:00:00 Rajeve Woods [facility] Health Surgical Specialti Jarvis 1.2840.114 350.1.13.10 4.2.7.2.686 [id number] [facility] 2021-02-24 00:00:00 2021-02-24 00:00:00 Telephone [facility] [place] 1.2840.114 350.1.13.10 4.2.7.2.686 [id number] [facility] 2021-02-16 10:42:16 2021-02-16 12:12:22 Office Visit Care, Flaco [facility] [place] 1.2.840.114 350.1.13.10 4.2.7.2.686 [id number] [facility] 2021-02-16 10:30:00 2021-02-16 10:30:00 Outpatient R HUNG [facility] [id number] [facility] 2021-02-12 00:00:00 2021-02-12 00:00:00 Transition of Care Elisabeth Buck 1.2.840.114 350.1.13.10 4.2.7.2.686 [id number] [facility] 2021-02-08 16:14:00 2021-02-11 22:38:00 Hospital Encounter Eloisa Harris, Bowen Rodriguez [facility] 1.2.840.114 350.1.13.10 4.2.7.2.686 [id number] [facility] 2021-02-08 00:00:00 2021-02-08 00:00:00 Orders Only Doctor Unassigned, [place] [facility] 1.2.840.114 350.1.13.10 4.2.7.2.686 [id number] [facility] 2021-01-22 00:00:00 2021-01-22 00:00:00 Rajeev Woods [facility] Surgical Specialti helena Cullen 1.2.840.114 350.1.13.10 4.2.7.2.686 [id number] [facility] 2021-01-22 00:00:00 2021-01-22 00:00:00 [facility] [place] 1.2.840.114 350.1.13.10 4.2.7.2.686 [id number] [facility] 2021-01-21 00:00:00 2021-01-21 00:00:00 Telephone [facility] [place] 1.2.840.114 350.1.13.10 4.2.7.2.686 [id number] [facility] 2021-01-21 00:00:00 2021-01-21 00:00:00 Telephone [facility] [place] 1.2.840.114 350.1.13.10 4.2.7.2.686 [id number] [facility] 2021-01-07 13:30:00 2021-01-07 13:30:00 Outpatient JEMMA LEGGETT [facility] [id number] [facility] 2021-01-07 12:54:14 2021-01-07 13:24:14 Office Visit Jemma Addison [facility] 1.2840.114 350.1.13.10 4.2.7.2.686 [id number] 072 [id number] [facility] 2020-12-25 00:00:00 2020-12-25 00:00:00 Rajeev Woods [facility] Health Surgical Specialti helena [place] 1.2840.114 350.1.13.10 4.2.7.2.686 [id number] [facility] 2020-12-08 08:27:41 2020-12-08 09:27:41 Office Visit Care, Kwame Avila [facility] [place] 1.20.114 350.1.13.10 4.2.7.2.686 [id number] [facility] 2020-12-08 08:30:00 2020-12-08 08:30:00 Outpatient KWAME LINARES [facility] [id number] [facility] 2020-12-08 00:00:00 2020-12-08 00:00:00 Orders Only Doctor Unassigned, [place] [facility] 1.2.114 350.1.13.10 4.2.7.2.686 [id number] [id number] [facility] 2020-12-04 00:00:00 2020-12-04 00:00:00 Case Management Juanpablo Florez [facility] 1.2.114 350.1.13.10 4.2.7.2.686 [id number] [facility] 2020-12-04 00:00:00 2020-12-04 00:00:00 [facility] 1.2.840.114 350.1.13.10 4.2.7.2.686 [id number] 046 [id number] [facility] 2020-11-27 07:53:00 2020-11-27 10:45:00 Hospital Encounter Juanpablo Florez Leonidphuongjennifer [facility] ([facility] 1.2.840.114 350.1.13.10 4.2.7.2.686 [id number] 049 [id number] [facility] 2020-11-27 00:00:00 2020-11-27 00:00:00 Orders Only Doctor Unassigned, [place] [facility] 1.2.840.114 350.1.13.10 4.2.7.2.686 [id number] [id number] [facility] 2020-11-26 00:00:00 2020-11-26 00:00:00 [place] [facility] [place] 1.2.840.114 350.1.13.10 4.2.7.2.686 [id number] [facility] 2020-11-25 13:00:00 2020-11-25 13:00:00 Outpatient R JUANPABLO FLOREZ [facility] [id number] [facility] 2020-11-25 12:27:28 2020-11-25 12:42:28 Laboratory Only Only, [facility] Test Jaxonchapo [facility] 1.2.840.114 350.1.13.10 4.2.7.2.686 [id number] [facility] 2020-11-24 08:12:29 2020-11-24 08:39:21 Office Visit Care, Flaco Primary [facility] [place] 1.2.840.114 350.1.13.10 4.2.7.2.686 [id number] [facility] 2020-11-24 08:15:00 2020-11-24 08:15:00 Outpatient KWAME LINARES [facility] [id number] [facility] 2020-11-24 00:00:00 2020-11-24 00:00:00 Refill Cosmo Calvillo [facility] Jarvis Harvey [facility] 1.2.840.114 350.1.13.10 4.2.7.2.686 [id number] 059 [id number] [facility] 2020-11-21 00:00:00 2020-11-21 00:00:00 Telephone Kwame Persaud [facility] [place] 1.2.840.114 350.1.13.10 4.2.7.2.686 [id number] [facility] 2020-11-03 10:58:22 2020-11-03 11:13:22 Pond Scaler Visit Vls-Lab Jemma Addison [facility] CARE [facility] 1.2.840.114 350.1.13.10 4.2.7.2.686 [id number] [facility] 2020-11-03 09:49:19 2020-11-03 11:03:45 Office Visit Jemma Addison [facility] Gwinnettd[facility] 1.2.840.114 350.1.13.10 4.2.7.2.686 [id number] [facility] 2020-11-03 10:30:00 2020-11-03 10:30:00 Outpatient JEMMA LEGGETT [facility] [id number] [facility] 2020-10-24 00:00:00 2020-10-24 00:00:00 Refill Kwame Persaud [facility] SPECIALTY [facility] 1.2.840.114 350.1.13.10 4.2.7.2.686 [id number] [facility] 2020-10-24 00:00:00 2020-10-24 00:00:00 Rajeev Woods [facility] 1.2840.114 350.1.13.10 4.2.7.2.686 [id number] [facility] 2020-10-21 00:00:00 2020-10-21 00:00:00 Orders Only Doctor Unassigned, [place] [facility] 1.20.114 350.1.13.10 4.2.7.2.686 [id number] [id number] [facility] 2020-10-16 10:09:14 2020-10-16 11:14:06 Office [facility] 1.2.114 350.1.13.10 4.2.7.2.686 [id number] [id number] [facility] 2020-10-16 10:20:00 2020-10-16 10:20:00 Outpatient R [facility] [id number] [facility] 2020-10-13 08:23:39 2020-10-13 11:16:12 Office Visit Care, Kwame Avila [facility] [place] 1..114 350.1.13.10 4.2.7.2.686 [id number] [facility] 2020-10-13 08:30:00 2020-10-13 08:30:00 Outpatient R KWAME PERSAUD [facility] [id number] [facility] 2020-10-07 09:07:15 2020-10-07 23:59:00 Hospital Encounter Kwame Persaud [facility] 1.0.114 350.1.13.10 4.2.7.2.686 [id number] [facility] 2020-10-07 00:00:00 2020-10-07 00:00:00 Outpatient Dolly PERSAUD [facility] [id number] [facility] 2020-09-23 00:00:00 2020-09-23 00:00:00 Rajeev Woods [facility] Health Surgical Specialti helena Cullen 1.2.840.114 350.1.13.10 4.2.7.2.686 [id number] [facility] 2020-09-04 00:00:00 2020-09-04 00:00:00 Telephone [facility] [place] 1.2.840.114 350.1.13.10 4.2.7.2.686 [id number] [facility] 2020-09-01 10:30:00 2020-09-01 10:30:00 Outpatient Dolly PERSAUD [facility] [id number] [facility] 2020-09-01 00:00:00 2020-09-01 00:00:00 Orders Only Doctor Unassigned, [place] [facility] 1.2.840.114 350.1.13.10 4.2.7.2.686 [id number] [facility] 2020-08-07 00:00:00 2020-08-07 00:00:00 Telephone Hung [facility] 1.2.840.114 350.1.13.10 4.2.7.2.686 [id number] [facility] 2020-08-04 08:53:31 2020-08-04 09:57:33 Office Visit Care, Flaco Primary [facility] [place] 1.2.840.114 350.1.13.10 4.2.7.2.686 [id number] [facility] 2020-08-04 08:15:00 2020-08-04 08:15:00 Outpatient R ROSS, [facility] [id number] [facility] 2020-08-04 00:00:00 2020-08-04 00:00:00 Cosmo Hameed [facility] Jarvis Harvey Sulma [facility] 1.2.840.114 350.1.13.10 4.2.7.2.686 [id number] 059 [id number] [facility] 2020-08-04 00:00:00 2020-08-04 00:00:00 Orders Only Doctor Unassigned, [place] [facility] 1.2.840.114 350.1.13.10 4.2.7.2.686 [id number] [facility] 2020-08-01 00:00:00 2020-08-01 00:00:00 Riky Persaud [facility] [place] 1.2.840.114 350.1.13.10 4.2.7.2.686 [id number] [facility] 2020-07-29 00:00:00 2020-07-29 00:00:00 Carito Persaud [facility] [place] 1.2.840.114 350.1.13.10 4.2.7.2.686 [id number] [facility] 2020-07-25 00:00:00 2020-07-25 00:00:00 Rajeev Woods [facility] Jarvis 1.2.840.114 350.1.13.10 4.2.7.2.686 [id number] [facility] 2020-07-25 00:00:00 2020-07-25 00:00:00 Orders Only Doctor Unassigned, [place] [facility] 1.2.840.114 350.1.13.10 4.2.7.2.686 [id number] [id number] [facility] 2020-07-11 15:20:00 2020-07-11 15:20:00 Outpatient R CHAUNCEY MUNOZ SHIGAJose [facility] [id number] [facility] 2020-07-11 14:57:28 2020-07-11 15:17:28 Office Visit Chauncey Munoz [facility] 1.2.840.114 350.1.13.10 4.2.7.2.686 [id number] [id number] [facility] 2020-07-07 10:03:46 2020-07-07 11:00:27 [facility] 1.2.840.114 350.1.13.10 4.2.7.2.686 [id number] 059 [id number] [facility] 2020-07-07 10:20:00 2020-07-07 10:20:00 [facility] [id number] [facility] 2020-06-26 00:00:00 2020-06-26 00:00:00 Refill [facility] 1.2.840.114 350.1.13.10 4.2.7.2.686 [id number] [facility] 2020-06-25 00:00:00 2020-06-25 00:00:00 Refill Rajeev Pearl [facility] Health Surgical Specialti [facility] 1.2.840.114 350.1.13.10 4.2.7.2.686 [id number] [facility] 2020-06-11 10:00:00 2020-06-11 10:00:00 Outpatient R [facility] [id number] [facility] 2020-06-06 10:15:00 2020-06-06 10:15:00 Outpatient R [facility] [id number] [facility] 2020-06-06 09:30:50 2020-06-06 09:45:50 Laboratory Only Only, Adc Test [place] [facility] 1.2840.114 350.1.13.10 4.2.7.2.686 [id number] [facility] 2020-06-06 00:00:00 2020-06-06 00:00:00 Orders Only Doctor Unassigned, [place] [facility] 1.2840.114 350.1.13.10 4.2.7.2.686 [id number] [facility] 2020-06-03 00:00:00 2020-06-03 00:00:00 Letter (Out) Heather Alan [facility] 1.2.114 350.1.13.10 4.2.7.2.686 [id number] [facility] 2020-06-03 00:00:00 2020-06-03 00:00:00 Telephone [facility] [place] 1.20.114 350.1.13.10 4.2.7.2.686 [id number] [facility] 2020-05-29 00:00:00 2020-05-29 00:00:00 Refill Rajeev Pearl [facility] 1.2840.114 350.1.13.10 4.2.7.2.686 [id number] [facility] 2020-05-27 00:00:00 2020-05-27 00:00:00 Telephone [facility] [place] 1.2840.114 350.1.13.10 4.2.7.2.686 [id number] [facility] 2020-05-27 00:00:00 2020-05-27 00:00:00 Telephone Cesilia Rajeev [facility] Profess[facility] 1.2840.114 350.1.13.10 4.2.7.2.686 [id number] [facility] 2020-05-25 00:00:00 2020-05-25 00:00:00 Rajeev Woods [facility] Health Surgical Specialti Jarvis 1.284.114 350.1.13.10 4.2.7.2.686 [id number] [facility] 2020-05-05 09:34:38 2020-05-20 10:25:10 Office Visit Care, Flaco [facility] [place] 1.2840.114 350.1.13.10 4.2.7.2.686 [id number] [facility] 2020-05-16 15:11:47 2020-05-16 15:59:41 Office Visit Chauncey Munoz [facility] 1.2.114 350.1.13.10 4.2.7.2.686 [id number] [id number] [facility] 2020-05-16 15:20:00 2020-05-16 15:20:00 Outpatient R CHAUNCEY MUNOZ SHIGAJose [facility] [id number] [facility] 2020-05-14 00:00:00 2020-05-14 00:00:00 Telephone [facility] [place] 1.284.114 350.1.13.10 4.2.7.2.686 [id number] [facility] 2020-05-08 00:00:00 2020-05-08 00:00:00 Telephone [facility] 1.284.114 350.1.13.10 4.2.7.2.686 [id number] [facility] 2020-05-05 09:30:00 2020-05-05 09:30:00 Outpatient Dolly PERSAUD [facility] [id number] [facility] 2020-05-05 00:00:00 2020-05-05 00:00:00 Orders Only Doctor Unassigned, [place] [facility] 1.2840.114 350.1.13.10 4.2.7.2.686 [id number] [facility] 2020-04-27 00:00:00 2020-04-27 00:00:00 RefKwame Patricia [facility]TY [place] 1.2840.114 350.1.13.10 4.2.7.2.686 [id number] [facility] 2020-04-27 00:00:00 2020-04-27 00:00:00 [facility] 1.2840.114 350.1.13.10 4.2.7.2.686 [id number] [facility] 2020-04-24 12:40:00 2020-04-24 12:40:00 Outpatient CHAUNCEY NORRIS SHIGAJose [facility] [id number] [facility] 2020-04-17 00:00:00 2020-04-17 00:00:00 Orders Only Doctor Unassigned, [place] [facility] 1.2840.114 350.1.13.10 4.2.7.2.686 [id number] [facility] 2020-04-04 00:00:00 2020-04-04 00:00:00 Refill Cesilia [facility] 1.2840.114 350.1.13.10 4.2.7.2.686 [id number] [facility] 2020-04-03 00:00:00 2020-04-03 00:00:00 Telephone Cosmo Calvillo [facility] [place] [facility] 1.2840.114 350.1.13.10 4.2.7.2.686 [id number] [facility] 2020-04-01 00:00:00 2020-04-01 00:00:00 Refill Cosmo [facility]villo [facility] 1.20.114 350.1.13.10 4.2.7.2.686 [id number] [facility] 2020-03-27 00:00:00 2020-03-27 00:00:00 RefRajeev Mckeon [facility] Health Surgical Specialti [facility] 1.0.114 350.1.13.10 4.2.7.2.686 [id number] [facility] 2020-03-17 09:11:20 2020-03-17 23:59:00 Hospital Encounter Hung Kwame [facility] 1.840.114 350.1.13.10 4.2.7.2.686 [id number] [facility] 2020-03-17 00:00:00 2020-03-17 00:00:00 Outpatient Dolly PERSAUD [facility] [id number] [facility] 2020-03-17 00:00:00 2020-03-17 00:00:00 Orders Only Doctor Unassigned, [place] [facility] 1.840.114 350.1.13.10 4.2.7.2.686 [id number] [facility] 2020-03-11 10:23:14 2020-03-11 12:12:21 Office Visit Care, Flaco Primary Hung Kwame [facility] [place] 1..114 350.1.13.10 4.2.7.2.686 [id number] [facility] 2020-03-11 10:30:00 2020-03-11 10:30:00 Outpatient Dolly PERSAUD [facility] [id number] [facility] 2020-02-25 00:00:00 2020-02-25 00:00:00 Refill Cosmo Calvillo [facility] Jarvis Harvey [facility] 1.2.840.114 350.1.13.10 4.2.7.2.686 [id number] [facility] 2020-02-24 00:00:00 2020-02-24 00:00:00 Refill Cesilia [facility] Surgical Special helena [place] 1.2.840.114 350.1.13.10 4.2.7.2.686 [id number] [facility] 2020-01-31 00:00:00 2020-01-31 00:00:00 [facility]phone [facility] [place] 1.2.840.114 350.1.13.10 4.2.7.2.686 [id number] [facility] 2020-01-24 00:00:00 2020-01-24 00:00:00 Refill Cesilia [facility] Surgical Special [place]ena [place] 1.2.840.114 350.1.13.10 4.2.7.2.686 [id number] [facility] 2020-01-10 00:00:00 2020-01-10 00:00:00 Telephone [facility] [place] 1.2.840.114 350.1.13.10 4.2.7.2.686 [id number] [facility] 2019-11-23 00:00:00 2019-11-23 00:00:00 Refill Cesilia [facility] Surgical Special [place]ena [place] 1.2.840.114 350.1.13.10 4.2.7.2.686 [id number] [facility] 2019-10-26 00:00:00 2019-10-26 00:00:00 [facility] [place] 1.2.840.114 350.1.13.10 4.2.7.2.686 [id number] [facility] 2019-10-26 00:00:00 2019-10-26 00:00:00 Refill [facility] 1.2.840.114 350.1.13.10 4.2.7.2.686 [id number] 059 [id number] [facility] 2019-10-02 09:21:44 2019-10-24 10:57:36 Office [facility] 1.2840.114 350.1.13.10 4.2.7.2.686 [id number] 059 [id number] [facility] 2019-10-24 00:00:00 2019-10-24 00:00:00 Orders Only Doctor Unassigned, [place] [facility] 1.2840.114 350.1.13.10 4.2.7.2.686 [id number] [facility] 2019-10-17 00:00:00 2019-10-17 00:00:00 Telephone Cesilia [facility] 1.2.840.114 350.1.13.10 4.2.7.2.686 [id number] [facility] 2019-10-05 00:00:00 2019-10-05 00:00:00 Telephone Kwame Persaud [facility] [place] 1.2.840.114 350.1.13.10 4.2.7.2.686 [id number] [facility] 2019-10-03 10:15:00 2019-10-03 10:15:00 Outpatient R RAJEEV PEARL [facility] [id number] [facility] 2019-10-03 09:59:47 2019-10-03 10:14:47 Office Visit Cesilia [facility] 1.2.840.114 350.1.13.10 4.2.7.2.686 [id number] [facility] 2019-10-02 13:57:52 2019-10-02 13:58:26 Office Visit Care, [place] [facility] [place] 1.2.840.114 350.1.13.10 4.2.7.2.686 [id number] [facility] 2019-10-02 08:15:00 2019-10-02 08:15:00 Outpatient R KWAME PERSAUD [facility] [id number] [facility] 2019-10-02 00:00:00 2019-10-02 00:00:00 Orders Only Doctor Unassigned, [place] [facility] 1.2.840.114 350.1.13.10 4.2.7.2.686 [id number] [facility] 2019-09-30 00:00:00 2019-09-30 00:00:00 Refill [facility] [place] 1.2.840.114 350.1.13.10 4.2.7.2.686 [id number] [facility] 2019-09-11 09:52:15 2019-09-14 09:59:16 [facility] [place] [facility] [place] 1.2.840.114 350.1.13.10 4.2.7.2.686 [id number] [facility] 2019-09-11 00:00:00 2019-09-11 00:00:00 Orders Only Doctor Unassigned, [place] [facility] 1.2.840.114 350.1.13.10 4.2.7.2.686 [id number] [facility] 2019-09-06 00:00:00 2019-09-06 00:00:00 Refill [facility] [place] 1.2.840.114 350.1.13.10 4.2.7.2.686 [id number] [facility] 2019-08-31 00:00:00 2019-08-31 00:00:00 Refill Cosmo Calvillo [facility] Jarvis Harvey [facility] 1.2.840.114 350.1.13.10 4.2.7.2.686 [id number] [facility] 2019-08-30 00:00:00 2019-08-30 00:00:00 Refill [facility] [place] 1.2.840.114 350.1.13.10 4.2.7.2.686 [id number] [facility] [facility] 2019-08-29 08:03:00 2019-08-29 08:03:00 Hospital Encounter Naresh Emeli [facility] ([facility]) [id number] 350.1.13.10 4.2.7.2.686 [id number] [facility] 2019-08-29 08:03:00 2019-08-29 08:03:00 Hospital Encounter Dangelo Jhonatan Negron [facility] ([facility]) [id number] 350.1.13.10 4.2.7.2.686 [id number] [facility] 2019-08-08 00:00:00 2019-08-08 00:00:00 Telephone Kwame Persaud [facility] [id number] 350.1.13.10 4.2.7.2.686 [id number] [facility] 2019-08-02 08:37:40 2019-08-02 23:59:00 Outpatient MAKAYLA DAO [facility] [id number] [facility] 2019-04-03 11:15:32 2019-04-03 12:05:43 Office Visit Cosmo Calvillo [facility] [id number] 350.1.13.10 4.2.7.2.686 [id number] [facility] 2019-04-02 00:00:00 2019-04-02 00:00:00 Refill Cosmo Calvillo [facility] [id number] 350.1.13.10 4.2.7.2.686 [id number] [facility] 2019-03-30 09:55:08 2019-03-30 23:59:00 Hospital Encounter Kwame Persaud [facility] [id number] 350.1.13.10 4.2.7.2.686 [id number] [facility] 2019-03-30 09:48:00 2019-03-30 09:58:00 Office Visit Jhonatan Pierson [facility] [id number] 350.1.13.10 4.2.7.2.686 [id number] [facility] 2019-03-30 09:54:51 2019-03-30 09:54:51 Hospital Encounter Kwame Persaud [facility] 1.2.840.114 350.1.13.10 4.2.7.2.686 [id number] [facility] 2019-03-30 00:00:00 2019-03-30 00:00:00 Orders Only Doctor Unassigned, [place] [facility] 1.2.840.114 350.1.13.10 4.2.7.2.686 [id number] [facility] 2019-03-02 00:00:00 2019-03-02 00:00:00 Telephone Kwame Persaud [facility] 1.2.840.114 350.1.13.10 4.2.7.2.686 [id number] [facility] 2019-03-02 00:00:00 2019-03-02 00:00:00 Telephone Kwame Persaud [facility] [place] 1.2.840.114 350.1.13.10 4.2.7.2.686 [id number] [facility] 2019-03-01 00:00:00 2019-03-01 00:00:00 Telephone Kwame Persaud [facility] 1.2.840.114 350.1.13.10 4.2.7.2.686 [id number] [facility] 2019-02-27 09:56:57 2019-02-27 12:40:25 Office Visit Care, [place] [facility] Kwame Persaud [facility] [place] 1.284.114 350.1.13.10 4.2.7.2.686 [id number] [facility] 2019-02-27 00:00:00 2019-02-27 00:00:00 Orders Only Doctor Unassigned, [place] [facility] 1.2.114 350.1.13.10 4.2.7.2.686 [id number] [facility] 2019-02-21 00:00:00 2019-02-21 00:00:00 Refill Kwame Persaud [facility] 1.2114 350.1.13.10 4.2.7.2.686 [id number] [facility]
[2024-10-30] MEDS ORDERED: ALBUTEROL 2.5 MG/3 ML NEB SOL ONE (15:45)
[2024-10-30] MEDS ORDERED: MAGNESIUM SULFATE 1 gm IVPB 1 GM/100 ML BAG IV ONE (15:46)
[2024-10-30] MEDS ORDERED: METHYLPREDNISOLONE 125 MG INJ ONE (15:46)
[2024-10-30] MEDS ORDERED: IPRATROPIUM BROM 0.5MG/2.5ML ONE (15:46)
--- NOTE | 2024-10-30 16:34 | RAD REPORT ---
Procedure: Chest Single View HISTORY: Shortness of breath COMPARISON: 2023 FINDINGS: The lungs appear clear of acute infiltrate. No significant pleural effusion noted. The heart is probably borderline enlarged. IMPRESSION: No acute abnormality is displayed.
[2024-10-30 16:56] LABS: Influenza A Ag Negative; Influenza B Ag Negative; SARS-CoV-2 Antigen Rapid Res Negative (Negative)
[2024-10-30 16:59] LABS: PT Prothrombin Time 12.7 SECONDS (10-13.0); PTT, Activated Partial Thromb 32.6 SECONDS (27.2-37.4); Protime INR 1.12
[2024-10-30 17:32] LABS: Absolute Basophils 0.1 K/uL (0-0.5); Absolute Eosinophils 0.2 K/uL (0-0.5); Absolute Lymphocytes (CBC) 1.7 K/uL (0.7-4.9); Absolute Monocytes 0.4 K/uL (0.1-1.3); Absolute Neutrophil 8.5 K/uL (1.8-8.0); Basophils % 0.9 % (0-1.3); Eosinophils % 1.9 % (0-4.4); Hematocrit 43.9 % (39.6-49.0); Hemoglobin 14.1 g/dL (13.6-17.9); Lymphocytes % 15.3 % (15.3-44.8); MCH 24.2 pg (27.0-35.0); MCHC 32.2 g/dL (32.0-36.0); MCV 75.1 fL (80-100); Monocytes % 3.8 % (3.3-12.3); Neutrophils % 78.1 % (41.7-73.7); Nucleated Red Blood Cells % 0.1 % (0-0); Platelets 327 thou/uL (152-406); RBC Red Blood Cell Count 5.85 M/uL (4.33-5.43); Red Cell Distribution Width 17.3 % (12.1-15.2)
[2024-10-30 17:53] LABS: Albumin 3.3 g/dL (3.4-5.0); Albumin/Globulin Ratio 0.8 (1.1-1.8); Bilirubin Total 0.2 mg/dL (0.2-1.0); Globulin 4.1 g/dL (2.3-3.5); Protein, Total 7.4 g/dL (6.4-8.2)
--- NOTE | 2024-10-30 18:15 | ER ---
Nurse's Notes [facility] Name: Polo Rogers Jr Age: 54 yrs Sex: Male : 1970 Arrival Date: 10/30/2024 Time: 14:06 Bed 16 Private MD: Diagnosis: COPD/ Chronic obstructive pulmonary disease with (acute) exacerbation Presentation: 10/30 14:54 Chief complaint: Patient states: he started feeling like he was having shortness of ap3 breath at some point in the night last night. Coronavirus screen: At this time, the client does not indicate any symptoms associated with coronavirus-19. Ebola Screen: No symptoms or risks identified at this time. Initial Sepsis Screen: Does the patient meet any 2 criteria? HR > 90 bpm. Does the patient have a suspected source of infection? No. Patient's initial sepsis screen is negative. Risk Assessment: Do you want to hurt yourself or someone else? Patient reports no desire to harm self or others. Onset of symptoms was October 29, 2024. 14:54 Method Of Arrival: Ambulatory ap3 15:03 Acuity: IMMANUEL 2 ap3 Triage Assessment: 14:56 General: Appears uncomfortable, Behavior is calm, cooperative, appropriate for age. ap3 Pain: Denies pain. Neuro: Level of Consciousness is awake, alert, obeys commands, Oriented to person, place, time, situation. Cardiovascular: Patient's skin is warm and dry. Respiratory: Reports shortness of breath Airway is patent Breath sounds with wheezes in left posterior lower lobe and right posterior middle lobe Onset: The symptoms/episode began/occurred last night. Historical: - Allergies: 14:55 tb test; ap3 - PMHx: 14:55 Chronic obstructive lung disease; Congestive heart failure; Hypertensive disorder; ap3 - PSHx: 14:55 hernia; ap3 - Immunization history:: Client reports receiving the 2nd dose of the Covid vaccine, Flu vaccine is not up to date. Pneumococcal vaccine is up to date. - Infectious Disease History:: Denies. - Social history:: Smoking status: Smoking status: Patient/guardian denies using tobacco, Patient uses street drugs, marijuana. - Family history:: not pertinent. - Hospitalizations: : No recent hospitalization is reported. Screenin:57 Abuse screen: Denies threats or abuse. Nutritional screening: No deficits noted. ap3 Tuberculosis screening: No symptoms or risk factors identified. 14:57 [facility] ED Fall Risk Assessment (Adult) Altered Elimination. ap3 18:35 [facility] ED Fall Risk Assessment (Adult) History of falling in the last 3 months, bp including since admission No falls in past 3 months (0 pts) Confusion or Disorientation No (0 pts) Intoxicated or Sedated No (0 pts) Impaired Gait No (0 pts) Mobility Assist Device Used No (0 pt) Score/Fall Risk Level 0 - 2 = Low Risk Oriented to surroundings. Assessment: 15:00 General: Appears distressed, uncomfortable, ill, obese, Behavior is cooperative, bp appropriate for age, anxious. Pain: Denies pain. Neuro: No deficits noted. Cardiovascular: Rhythm is sinus rhythm. Respiratory: Respiratory effort is labored, Respiratory pattern is regular, tachypnea. Respiratory: Airway is patent. GI: No signs and/or symptoms were reported involving the gastrointestinal system. : No signs and/or symptoms were reported regarding the genitourinary system. EENT: No deficits noted. Derm: No deficits noted. Musculoskeletal: No deficits noted. 17:33 Reassessment: Patient appears in no apparent distress at this time. Patient is alert, bp oriented x 3, equal unlabored respirations, skin warm/dry/pink. Patient states symptoms have improved. Vital Signs: 14:54 BP 119 / 76; Pulse 99; Resp 20; Temp 98.6; Pulse Ox 99% on R/A; Weight 158.76 kg; ap3 Height 5 ft. 9 in. ; 17:32 BP 105 / 60; Pulse 91; Resp 20; Pulse Ox 95% on R/A; bp 18:34 BP 101 / 75; Pulse 89; Resp 16; Pulse Ox 93% on R/A; bp 14:54 Body Mass Index 51.69 (158.76 kg, 175.26 cm) ap3 ED Course: 14:15 Patient arrived in ED. al6 14:19 Emmanuel Belle MD is Attending Physician. rn 14:43 XRAY Chest (1 view) In Process Unspecified. EDMS 14:55 Triage completed. ap3 14:57 Arm band placed on right wrist. ap3 15:13 Jhonatan Ernandez, RN is Primary Nurse. bp 16:10 Initial lab(s) drawn, by me, sent to lab. First set of blood cultures drawn by me, bp Second set of blood cultures drawn by me, EKG done, by ED staff, reviewed by Emmanuel Belle MD. Inserted saline lock: 20 gauge in left antecubital area, using aseptic technique. Blood collected. Flushed with 10 mL NS. 17:34 Patient has correct armband on for positive identification. bp 18:35 No provider procedures requiring assistance completed. IV discontinued, intact, bp bleeding controlled, No redness/swelling at site. Pressure dressing applied. Administered Medications: 15:30 Drug: MethylPrednisoLONE IVP 125 mg IVP once Route: IVP; Site: left antecubital; bp 18:34 Follow up: Response: No adverse reaction bp 15:30 Drug: DuoNeb Nebulize (3:1) (2.5 mg - 0.5 mg) 3 ml Nebulizer once Route: Nebulizer; bp 18:34 Follow up: Response: No adverse reaction bp 15:30 Drug: Magnesium Sulfate IVPB 1 grams IVPB once over 1 hrs Route: IVPB; Infused Over: 1 bp hrs; Site: left antecubital; 18:34 Follow up: IV Status: Completed infusion bp 18:30 Drug: AZITHromycin PO 500 mg PO once Route: PO; bp 18:34 Follow up: Response: No adverse reaction bp Outcome: 18:15 Discharge ordered by . rn 18:35 Discharged to home ambulatory, with family, bp 18:35 Condition: stable 18:35 Discharge instructions given to patient, family, Instructed on discharge instructions, follow up and referral plans. medication usage, Demonstrated understanding of instructions, follow-up care, medications, Prescriptions given X 3, 18:36 Patient left the ED. bp Signatures: Dispatcher [employer] EDMS Emmanuel Belle MD MD rn Peltier, Brian, RN RN bp Sita Pena RN RN ap3 Erin Perez6 Corrections: (The following items were deleted from the chart) 15:03 14:54 Acuity: IMMANUEL 3 ap3 ap3
--- NOTE | 2024-10-30 18:16 | EDPHYS ---
Physician Documentation [facility] Name: Polo Rogers Jr Age: 54 yrs Sex: Male : 1970 Arrival Date: 10/30/2024 Time: 14:06 Bed 16 Private MD: ED Physician Emmanuel Belle HPI: 10/30 15:19 This 54 yrs old Male presents to ER via Ambulatory with complaints of Breathing rn Difficulty. 15:19 The patient has shortness of breath with light activity. rn 15:22 Onset: The symptoms/episode began/occurred last night. The patient's shortness of rn breath is aggravated by exertion, light activity, talking, walking. Severity of symptoms: At their worst the symptoms were moderate in the emergency department the symptoms are unchanged. The patient has experienced similar episodes in the past. Patient reports shortness of breath and productive cough for 1 day. Patient with COPD. Also with CHF. Compliant with 80 mg of Lasix daily. No lower extremity edema or swelling. No chest pain. No hemoptysis. No history of DVT or PE. No trauma.. Historical: - Allergies: 14:55 tb test; ap3 - PMHx: 14:55 Chronic obstructive lung disease; Congestive heart failure; Hypertensive disorder; ap3 - PSHx: 14:55 hernia; ap3 - Immunization history:: Client reports receiving the 2nd dose of the Covid vaccine, Flu vaccine is not up to date. Pneumococcal vaccine is up to date. - Infectious Disease History:: Denies. - Social history:: Smoking status: Smoking status: Patient/guardian denies using tobacco, Patient uses street drugs, marijuana. - Family history:: not pertinent. - Hospitalizations: : No recent hospitalization is reported. ROS: 15:22 Constitutional: Negative for fever, chills, and weight loss, Cardiovascular: Negative rn for chest pain, palpitations, and edema, Respiratory: Positive for cough and shortness of breath with wheezing Abdomen/GI: Negative for abdominal pain, nausea, vomiting, diarrhea, and constipation, MS/Extremity: Negative for lower extremity edema Exam: 15:22 Constitutional: Overweight male with tachypnea ENT: No stridor Respiratory: Diffuse rn crackles with wheezing, mild tachypnea, no retractions MS/ Extremity: No lower extremity edema Neuro: Awake and alert, GCS 15 16:20 ECG was reviewed by the Attending Physician. rn Vital Signs: 14:54 BP 119 / 76; Pulse 99; Resp 20; Temp 98.6; Pulse Ox 99% on R/A; Weight 158.76 kg; ap3 Height 5 ft. 9 in. ; 17:32 BP 105 / 60; Pulse 91; Resp 20; Pulse Ox 95% on R/A; bp 18:34 BP 101 / 75; Pulse 89; Resp 16; Pulse Ox 93% on R/A; bp 14:54 Body Mass Index 51.69 (158.76 kg, 175.26 cm) ap3 MDM: 14:19 Medical Screening Exam initiated rn 17:34 Differential diagnosis: CHF exacerbation, Chronic Obstructive Pulmonary Disease rn Myocardial Infarction pneumonia, Pneumothorax pulmonary edema. Data reviewed: vital signs, nurses notes, EKG, radiologic studies, plain films, and as a result, I will. Counseling: I had a detailed discussion with the patient and/or guardian regarding the historical points, exam findings, and any diagnostic results supporting the discharge/admit diagnosis, lab results, radiology results. Refusal of service: The patient/guardian displays adequate decision making capability and despite a detailed discussion of alternatives, benefits, risks, and consequences refuses: Admission to the hospital for further work-up and treatment. ED course: Patient feels better, still wheezing present. Offered admission to hospital for COPD exacerbation treatment, patient declines. Understands risks of going home including decompensation and . Will send patient home as long as labs are negative for other acute findings and plan to send him home with steroids, antibiotics. Patient states his physician on just refilled his nebulizer medication so is good on that.. 18:14 Independent interpretation of the following test(s) in the Emergency Department X-Ray: rn My interpretation is Chest x-ray images negative for pneumonia or pneumothorax per my interpretation.. ED course: Patient has elevated lactic acid. Spoke with patient and recommended admission once again, states that he has been told that he has "poor oxygen delivery to tissues" and still wants to go home. Patient states feels much better.. 10/30 15:06 Order name: Blood Culture Adult (2) rn 10/30 15:06 Order name: CBC with Diff; Complete Time: 17:43 rn 10/30 15:06 Order name: CMP; Complete Time: 18:09 rn 10/30 15:06 Order name: Lactate w/ 2H reflex if indic.; Complete Time: 18:09 rn 10/30 15:06 Order name: Protime (+inr); Complete Time: 17:11 rn 10/30 15:06 Order name: Ptt, Activated; Complete Time: 17:11 rn 10/30 15:07 Order name: COVID-19 Ag + Flu A+B Ag; Complete Time: 17:11 rn 10/30 15:07 Order name: BNP; Complete Time: 18:09 rn 10/30 17:57 Order name: Ghost Lactate-NO COLLECT Timer EDMS 10/30 14:19 Order name: XRAY Chest (1 view); Complete Time: 16:44 rn 10/30 15:06 Order name: EKG; Complete Time: 15:07 rn 10/30 15:06 Order name: Accucheck; Complete Time: 15:24 rn 10/30 15:06 Order name: Cardiac monitoring; Complete Time: 16:14 rn 10/30 15:06 Order name: EKG - Nurse/Tech; Complete Time: 16:14 rn 10/30 15:06 Order name: IV Saline Lock - Large Bore; Complete Time: 16:14 rn 10/30 15:06 Order name: Labs collected and sent; Complete Time: 16:14 rn 10/30 15:06 Order name: O2 Per Protocol; Complete Time: 15:24 rn 10/30 15:06 Order name: O2 Sat Monitoring; Complete Time: 15:24 rn 10/30 15:06 Order name: Vital Signs; Complete Time: 16:14 rn 10/30 16:32 Order name: Labs - recollect needed: recollect macias on ice,lavender and green top; bd Complete Time: 17:19 EC:20 Rate is 88 beats/min. Rhythm is regular. QRS Hope is Normal. NM interval is normal. QRS rn interval is normal. QT interval is normal. No Q waves. T waves are Normal. No ST changes noted. Clinical impression: NSR w/ Non-specific ST/T Changes. Interpreted by me. Reviewed by me. Administered Medications: 15:30 Drug: MethylPrednisoLONE IVP 125 mg IVP once Route: IVP; Site: left antecubital; bp 18:34 Follow up: Response: No adverse reaction bp 15:30 Drug: DuoNeb Nebulize (3:1) (2.5 mg - 0.5 mg) 3 ml Nebulizer once Route: Nebulizer; bp 18:34 Follow up: Response: No adverse reaction bp 15:30 Drug: Magnesium Sulfate IVPB 1 grams IVPB once over 1 hrs Route: IVPB; Infused Over: 1 bp hrs; Site: left antecubital; 18:34 Follow up: IV Status: Completed infusion bp 18:30 Drug: AZITHromycin PO 500 mg PO once Route: PO; bp 18:34 Follow up: Response: No adverse reaction bp Disposition Summary: 10/30/24 18:15 Discharge Ordered Notes: Location: Home rn Problem: an acute exacerbation rn Symptoms: have improved rn Condition: Stable rn Diagnosis - COPD/ Chronic obstructive pulmonary disease with (acute) exacerbation rn Followup: rn - With: Private Physician - When: As needed - Reason: Recheck today's complaints, Re-evaluation by your physician Discharge Instructions: - Discharge Summary Sheet rn - Chronic Obstructive Pulmonary Disease Exacerbation rn Forms: - Medication Reconciliation Form rn - 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 Day 2, 3, 4 , 5 take one (1) tablet once daily.; 6 tablet; Refills: 0, Product Selection Permitted - Medrol (Herminio) 4 mg Oral Tablets, Dose Pack - take 1 tablet ORAL route as directed - follow package instructions; 1 packet; rn Refills: 0, Product Selection Permitted Signatures: Dispatcher [employer] Jeanie Ochoa Roman, MD MD rn Peltier, Brian RN RN Sita Andrews RN RN ap3
[2024-10-30] MEDS ORDERED: AZITHROMYCIN 250 MG TAB ONE (18:22)
[2024-10-30 19:06] VITALS: TEMP 98.6
[2024-10-30 19:09] VITALS: BP 101/75; O2SAT 93
--- NOTE | 2024-10-31 11:59 | EKG ---
Test Date: 2024-10-30 Test Time: 16:07:26 Dry End Operator: BP MEASUREMENT RESULTS: Intervals: Rate: 88 KS: 148 QRSD: 98 QT: 374 QTc: 452 [place]: P: 45 KS: 148 QRS: 30 T: 124 INTERPRETIVE STATEMENTS: Normal sinus rhythm Low voltage QRS ST & T wave abnormality, consider lateral ischemia Abnormal ECG Compared to ECG 12/23/2023 21:38:02 ST (T wave) deviation now present Ventricular premature complex(es) no longer present T-wave abnormality no longer present Possible ischemia still present Electronically Signed On 10-31-24 11:57:16 CDT by Víctor Diaz
== END 2024-10-30 18:36 | disposition home or self-care (01) ==
LOC: ER 14:06
DX: J44.1 Chronic obstructive pulmonary disease with (acute) exacerbation (principal); I50.9 Heart failure, unspecified; I10 Essential (primary) hypertension; Z11.52 Encounter for screening for COVID-19
CPT/HCPCS: 96365; 93005; 87040 ×2; 85025; 36415; 85610; 83605; 85730; 80053; 83880; 71045; 96375; 99285; 96366; 87428; J3475; J7613; J7644; J2919